=== PATIENT | male | born 1980 | race Asian ===

== ENCOUNTER 2021-06-20 16:20 | Emergency (ER) | payer OTHER ==
[~2021-06-20] VITALS: Ht 165.1 cm; Wt 62.7 kg
[2021-06-20] MEDS ORDERED: ONDANSETRON HCL INJ 2MG/ML 2ML 2 MG/ML VIAL IV STA (17:00)
[2021-06-20] MEDS ORDERED: SODIUM CHLORIDE 0.9% 1000ML 1,000 ML IV SCH (17:00)
[2021-06-20] MEDS ORDERED: KETOROLAC TROMETHAMINE 30 MG/ML VIAL IV STA (17:00)
[2021-06-20] MEDS ORDERED: SODIUM CHLORIDE 0.9% 1000ML 1,000 ML ONE (17:25)
[2021-06-20] MEDS ORDERED: KETOROLAC TROMETHAMINE 30 MG/ML VIAL ONE (17:25)
[2021-06-20] MEDS ORDERED: ONDANSETRON HCL INJ 2MG/ML 2ML 2 MG/ML VIAL ONE (17:25)
[2021-06-20] MEDS ORDERED: SODIUM CHLORIDE 0.9% 50ML 50 ML ONE (17:32)
[2021-06-20] MEDS ORDERED: IOPAMIDOL 370 MG/ML 200 ML INFUS..BTL INJ ONE (17:33)
[2021-06-20] MEDS ORDERED: ONDANSETRON ODT4 MG PO (19:33)
[2021-06-20] MEDS ORDERED: ACETAMINOPHEN-1 EAC4 PO (19:33)
[2021-06-20] MEDS ORDERED: MOTRIN200 MG PO (19:33)
[2021-06-20] MEDS ORDERED: FLOMAX0.4 MG PO (19:33)
== END 2021-06-20 20:45 | disposition home or self-care (01) ==
LOC: FSED 16:55
DX: R10.30 Lower abdominal pain, unspecified (principal); N13.2 Hydronephrosis with renal and ureteral calculous obstruction; R11.2 Nausea with vomiting, unspecified; R94.4 Abnormal results of kidney function studies
CPT/HCPCS: 74177; 80048; 80076; 81003; 85025; 99284; J1885; J2405; J7030; Q9967